=== PATIENT | female | born 1975 | race Asian ===

== ENCOUNTER 2017-07-14 19:46 | Emergency (ER) | payer BC ==
--- NOTE | 2017-07-14 20:10 | PDOC ---
History of Present Illness - General Chief Complaint: Syncope/Near Syncope Stated Complaint: SYNCOPE Time Seen by Provider: 07/14/17 19:52 - History of Present Illness Initial Comments: 07/14/17 20:10 CHIEF COMPLAINT: syncope HISTORY OF PRESENT ILLNESS: 42 yo F with hx of multiple syncopal episodes BIBEMS s/p syncope. Patient and family reports that she was "just sitting" when she felt leg cramps and then "passed out." She denies any recent fever, chills, nausea, vomiting, or diarrhea. 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 Olivera. Case Management Coordinator is Dr. Vizcarra. PAST MEDICAL HISTORY: Denies past medical history FAMILY HISTORY: Denies SOCIAL HISTORY: Denies tobacco, alcohol, illicit drug use. SURGICAL HISTORY: Denies ALLERGIES: No known drug allergies REVIEW OF SYSTEMS General/Constitutional: Denies fever or chills. Denies weakness, weight change. HEENT: Denies change in vision. Denies ear pain or discharge. Denies sore throat. Cardiovascular: Denies chest pain or shortness of breath. Respiratory: Denies cough, wheezing, or hemoptysis. Gastrointestinal: Denies nausea, vomiting, diarrhea or constipation. Denies rectal bleeding. Genitourinary: Denies dysuria, frequency, or change in urination. Musculoskeletal: Denies joint or muscle swelling or pain. Denies neck or back pain. Skin and breasts: Denies rash or easy bruising. Neurologic: LOC earlier. Denies any headache, vertigo or loss of sensation at this time. PHYSICAL EXAM General Appearance: Well-appearing, appropriately dressed. No apparent distress , no intoxication. HEENT: EOMI, PERRLA, normal ENT inspection, normal voice, TMs normal, pharynx normal. No conjunctival pallor. No photophobia, scleral icterus. Neck: Supple. Trachea midline. No tenderness, rigidity, carotid bruit, stridor , lymphadenopathy, or thyromegaly. Respiratory/Chest: Lungs CTAB. No shortness of breath, chest tenderness, respiratory distress, accessory muscle use. No crackles, rales, rhonchi, stridor , wheezing, dullness Cardiovascular: RRR. S1, S2. No JVD, murmur, bradycardia, tachycardia. Vascular Pulses: Dorsalis-Pedis (R): 2+, Dorsalis-Pedis (L): 2+ Gastrointestinal/Abdominal: Normal bowel sounds. Abdomen soft, non-distended. No tenderness or rebound tenderness. No organomegaly, pulsatile mass, guarding , hernia, hepatomegaly, splenomegaly. Lymphatic: No adenopathy, tenderness. Musculoskeletal/Extremities: Normal inspection. FROM of all extremities, normal capillary refill. Pelvis Stable. No CVA tenderness. No tenderness to extremities, pedal edema, swelling, erythema or deformity. Integumentary: Appropriate color, dry, warm. 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 Fully oriented, alert. Appropriate mood/affect. Motor strength 5/5. No appreciable EOM palsy, facial droop or sensory deficit. A&Ox3, follow commands, respond appropriately CN2-12: conjugate gaze, pupil round, equal and reactive to light. Visual field full to confrontation. EOMI without nystagmus, pursuit is smooth without saccade. Facial sensation and muscle activation intact bilaterally. Hearing intact bilaterally. Palate elevate symmetrically. Shoulder shrug and neck turn full strength. Tongue protrude midline. Motor: UE and LE strength 5/5 throughout bilaterally. Muscle tone and bulk normal. L shoulder abd 5/5 elbow F/E 5/5 wrist F/E 5/5 finger F/E 5/5 R shoulder abd 5/5 elbow F/E 5/5 wrist F/E 5/5 finger F/E 5/5 L hip F/E 5/5 knee F/E 5/5 ankle F/E 5/5 R hip F/E 5/5 knee F/E 5/5 ankle F/E 5/5 Sensory: pin prick & temp : BUE & BLE intact and equal bilaterally Vibration & propioception: intact bilaterally at 1st MCP and MTP joints. no sensory level noted on trunk Reflex: biceps brachioradialis triceps patellar achilles L 2+ 2+ 2+ 2+ 2+ R 2+ 2+ 2+ 2+ 2+ Plantar reflex downwards bilaterally. Cerebellar: Rapid-alternating movement with regular rhythm without bradykinesia. Xcqaab-bn-hqbn and wbkd-tz-jhvh intact bilaterally without dysmetria or overshoot. Gait narrow based. No shuffling. Full hip flexion and knee flexion. Negative Romberg No involuntary movement noted. No pronator drift. No clonus. Past History - Past Medical History Allergies/Adverse Reactions: Allergies Allergy/AdvReac Type Severity Reaction Status Date / Time No Known Drug Allergies Allergy Verified 07/14/17 19:55 Home Medications: Ambulatory Orders Calcium 500 mg PO ASDIR 05/13/15 Cholecalciferol (Vitamin D3) [Vitamin D3] 1,000 unit PO DAILY 05/13/15 Folic Acid/Mv,Fe,Min [Centrum Multivitamin Tab Chew] 1 cap PO DAILY 05/13/15 Cardiac Disorders: (ASD 2006) - Surgical History Cardiac Surgery: Yes (asd patchwork) - Suicide/Smoking/Psychosocial Hx Smoking History: Never smoked Have you smoked in the past 12 months: No Information on smoking cessation initiated: No Hx Alcohol Use: No Drug/Substance Use Hx: No Substance Use Type: None Hx Substance Use Treatment: No *Physical Exam - Vital Signs Last Vital Signs Temp Pulse Resp BP Pulse Ox 97.6 F 70 18 110/54 97 07/14/17 19:55 07/14/17 19:55 07/14/17 19:55 07/14/17 19:55 07/14/17 19:55 ED Treatment Course - LABORATORY CBC & Chemistry Diagram: 07/14/17 21:00 07/14/17 21:00 - ADDITIONAL ORDERS Additional order review: Laboratory Results 07/14/17 07/14/17 07/14/17 21:00 21:00 21:00 WBC RBC Hgb Hct MCV MCH MCHC RDW Plt Count MPV Neutrophils % Lymphocytes % Monocytes % Eosinophils % Basophils % PT with INR INR Sodium 138 Potassium 4.5 Chloride 106 Carbon Dioxide 27 Anion Gap 5 L BUN 11 Creatinine 0.8 Creat Clearance w eGFR > 60 Random Glucose 103 Calcium 8.6 Total Bilirubin 0.8 AST 20 ALT 28 Alkaline Phosphatase 54 Creatine Kinase 177 Creatine Kinase Index 0.5 CK-MB (CK-2) < 1.000 Troponin I < 0.02 Total Protein 7.8 Albumin 3.9 Urine Color Yellow Urine Appearance Clear Urine pH 5.0 Ur Specific Hope 1.023 Urine Protein 1+ H Urine Glucose (UA) Negative Urine Ketones Negative Urine Blood Negative Urine Nitrite Negative Urine Bilirubin Negative Urine Urobilinogen Negative Ur Leukocyte Esterase Trace Urine WBC (Auto) 2 Urine RBC (Auto) None Ur Epithelial Cells Rare Urine Bacteria Rare Urine Mucus Rare Anti-A Titer Cancelled Blood Type Cancelled Antibody Screen Cancelled 07/14/17 07/14/17 21:00 21:00 WBC 7.8 D RBC 4.35 Hgb 12.7 Hct 38.1 MCV 87.5 MCH 29.1 MCHC 33.3 RDW 13.4 D Plt Count 239 MPV 8.0 Neutrophils % 74.9 D Lymphocytes % 18.6 D Monocytes % 4.8 Eosinophils % 1.3 Basophils % 0.4 PT with INR 11.90 H INR 1.05 Sodium Potassium Chloride Carbon Dioxide Anion Gap BUN Creatinine Creat Clearance w eGFR Random Glucose Calcium Total Bilirubin AST ALT Alkaline Phosphatase Creatine Kinase Creatine Kinase Index CK-MB (CK-2) Troponin I Total Protein Albumin Urine Color Urine Appearance Urine pH Ur Specific Hope Urine Protein Urine Glucose (UA) Urine Ketones Urine Blood Urine Nitrite Urine Bilirubin Urine Urobilinogen Ur Leukocyte Esterase Urine WBC (Auto) Urine RBC (Auto) Ur Epithelial Cells Urine Bacteria Urine Mucus Anti-A Titer Blood Type Antibody Screen 07/14/17 21:00 RBC 4.35 MCV 87.5 MCHC 33.3 RDW 13.4 D MPV 8.0 Neutrophils % 74.9 D Lymphocytes % 18.6 D Monocytes % 4.8 Eosinophils % 1.3 Basophils % 0.4 - RADIOLOGY Radiology Studies Ordered: Category Date Time Status HEAD CT WITHOUT CONTRAST [CT] Stat CT Scan 07/14/17 20:11 Taken - Medications Given in the ED: ED Medications Discontinued Medications Generic Name Dose Route Start Last Admin Trade Name Freq PRN Reason Stop Dose Admin Sodium Chloride 1,000 mls @ 42 mls/hr 07/14/17 20:15 07/14/17 21:25 Normal Saline - IV 42 mls/hr ASDIR [facility] Administration Medical Decision Making - Medical Decision Making 07/14/17 23:21 42 yo F with hx of multiple syncopal episodes BIBEMS s/p syncope. -EKG -Head CT -CBC, CMP, PT/INR, card profile -UA, UCx 07/14/17 23:23 Labs unremarkable. EKG normal. Head CT results: FINDINGS: There are no calvarial, facial or skull base fractures. There are no intracranial hemorrhages or brain parenchymal contusion injuries. There are no extra-axial fluid collections or evidence of an intra-axial mass lesion. There is no evidence of an acute ischemic lesion at this time. The sulci and ventricles are normal in size. Orbital and petrous structures, cerebellopontine angles, and posterior fossa appear unremarkable. The paranasal and mastoid sinuses are clear. IMPRESSION: Normal CT scan of the head. No calvarial, facial or skull base fractures. No intracranial hemorrhages or brain parenchymal contusion injuries. No evidence of an acute ischemic lesion at this time. Read by: Madi Metzger MD. Advised patient to take medication as prescribed and follow up with PCP, neuro, and cards. Advised patient of signs and symptoms for return to ED. Patient verbalized understanding and agrees to plan. *DC/Admit/Observation/Transfer Diagnosis at time of Disposition: Syncopal episodes Qualifiers: Syncope type: unspecified Qualified Code(s): R55 - Syncope and collapse - Discharge Dispostion Disposition: HOME Condition at time of disposition: Stable Admit: No - Referrals Referrals: Tamiko Vines MD [Staff Physician] - Teddy Vizcarra MD [Staff Physician] - Gilberto Camacho MD [Staff Physician] - Young Chester MD [Staff Physician] - - Patient Instructions Printed Discharge Instructions: DI for Syncope in Adults (Fainting) Additional Instructions: You MUST follow up with neurology next week for further evaluation of your syncopal episodes. Please also follow up with Drs. Olivera and Mohinder within the next 1-2 weeks. If you develop ANY new or worsening symptoms, please return to the ER. - Post Discharge Activity
[2017-07-14] MEDS ORDERED: SODIUM CHLORIDE 1,000 ML IV SCH (20:15)
[2017-07-14 21:09] LABS: BASO % 0.4 % (0-2.0); EOS % 1.3 % (0-4.5); HEMATOCRIT 38.1 % (32.4-45.2); HEMOGLOBIN 12.7 GM/dL (10.7-15.3); LYMPH % 18.6 % (8-40); MCH 29.1 pg (25.7-33.7); MCHC 33.3 g/dl (32.0-36.0); MEAN CELL VOLUME 87.5 fl (80-96); MONO % 4.8 % (3.8-10.2); NEUT % 74.9 % (42.8-82.8); PLATELET COUNT 239 K/MM3 (134-434); RBC 4.35 M/mm3 (3.60-5.2); RDW 13.4 % (11.6-15.6); WHITE BLOOD COUNT 7.8 K/mm3 (4.0-10.0)
[2017-07-14 21:10] VITALS: BP 110/54; PULSE 70; TEMP 97.6; BMI 26.9
[2017-07-14 21:11] LABS: URINE APPEARANCE CLEAR; URINE BILIRUBIN NEGATIVE (NEGATIVE); URINE BLOOD NEGATIVE (NEGATIVE); URINE COLOR YELLOW; URINE GLUCOSE (UA) NEGATIVE (NEGATIVE); URINE KETONE NEGATIVE (NEGATIVE); URINE LEUK ESTERASE TRACE (NEGATIVE); URINE NITRITE NEGATIVE (NEGATIVE); URINE UROBILINOGEN NEGATIVE mg/dL (0.2-1.0)
[2017-07-14 21:12] LABS: URINE PROTEIN 1+ (NEGATIVE)
[2017-07-14 21:13] LABS: EPI CELLS RARE /HPF (FEW); URINE BACTERIA RARE /hpf (NONE SEEN); URINE MUCUS RARE
[2017-07-14 21:22] LABS: INR 1.05 (0.82-1.09); PROTHROMBIN TIME (PATIENT) 11.9 SEC (9.98-11.88)
[2017-07-14 21:32] LABS: ALBUMIN 3.9 g/dl (3.4-5.0); ANION GAP 5 (8-16); BILIRUBIN,TOTAL 0.8 mg/dL (0.2-1.0); BLOOD UREA NITROGEN 11 mg/dL (7-18); CALCIUM 8.6 mg/dL (8.5-10.1); CHLORIDE 106 mmol/L (98-107); CO2 27 mmol/L (21-32); CREATININE 0.8 mg/dL (0.55-1.02); GLUCOSE,RANDOM 103 mg/dL (74-106); SGPT/ALT 28 U/L (12-78); SODIUM 138 mmol/L (136-145); TOT PROT 7.8 g/dl (6.4-8.2)
[2017-07-14 21:34] LABS: ALK PHOS 54 U/L (45-117)
[2017-07-14 21:40] LABS: POTASSIUM 4.5 mmol/L (3.5-5.1); SGOT/AST 20 U/L (15-37)
--- NOTE | 2017-07-15 08:42 | EKG ---
Test Reason : Blood Pressure : / mmHG Vent. Rate : 062 BPM Atrial Rate : 062 BPM P-R Int : 170 ms QRS Dur : 082 ms QT Int : 414 ms P-R-T Axes : 021 014 056 degrees QTc Int : 420 ms NORMAL SINUS RHYTHM NONSPECIFIC T WAVE ABNORMALITY ABNORMAL ECG WHEN COMPARED WITH ECG OF 19-SEP-2014 15:36, NO SIGNIFICANT CHANGE WAS FOUND Confirmed by SAMEER PERALTA MD ([id number]) on 07/15/2017 8:42:00 AM Referred By: Confirmed By:SAMEER PERALTA MD
== END 2017-07-14 23:12 | disposition home or self-care (01) ==
LOC: JER 19:46
PROC: 3E0337Z Introduction of Electrolytic and Water Balance Substance into Peripheral Vein, Percutaneous Approach (ICD-10-PCS; principal; 2017-07-14)
DX: R55 Syncope and collapse (principal); Z86.79 Personal history of other diseases of the circulatory system
CPT/HCPCS: 36415; 70450-TC; 80053; 81003; 81015; 82550; 82553; 84484; 85025; 85610; 93005; 93010; 99282-25

== ENCOUNTER 2018-02-11 22:43 | Emergency (ER) | payer BC ==
[2018-02-11 22:50] VITALS: TEMP 98.4; BMI 27.2
[2018-02-11] MEDS ORDERED: SODIUM CHLORIDE 1,000 ML IV STA (23:01)
[2018-02-11] MEDS ORDERED: MAG HYDROX/AL HYDROX/SIMETH -MYLANTA- ORAL SUSPENSION PO ONE (23:02)
[2018-02-11] MEDS ORDERED: ONDANSETRON 4 MG/2 ML VIAL IVPUSH ONE (23:02)
[2018-02-11] MEDS ORDERED: FAMOTIDINE 20 MG/50 ML IVPB 20 MG/50 ML MG IVPB ONE ×2 (23:02→23:12)
[2018-02-11] MEDS ORDERED: morphine CARPU-JECT 4 MG/1 ML DISP.SYRIN IVPUSH ONE (23:08)
[2018-02-11] MEDS ORDERED: MAG HYDROX/AL HYDROX/SIMETH 30 ML UNIT-DOSE CUP ONE (23:12)
[2018-02-11] MEDS ORDERED: ONDANSETRON 4 MG/2 ML VIAL ONE (23:12)
[2018-02-11] MEDS ORDERED: morphine SULFATE 4 MG/ML VIAL ONE (23:12)
--- NOTE | 2018-02-11 23:14 | PDOC ---
Attending Attestation - Resident Resident Name: Shantanu Paul - ED Attending Attestation I have performed the following: I have examined & evaluated the patient, The case was reviewed & discussed with the resident, I agree w/resident's findings & plan, Exceptions are as noted - HPI HPI: 02/11/18 23:11 Ms Aldrich is a 43 yo F who presents to the ER with a complaint of abdominal/ chest pain Symptoms began today No fevers or chills (+) nausea, no vomiting, no diarrhea No prior episodes like this Pain is sharp, worsens with laying flat No recent travel, no leg edema No shortness of breath - Physicial Exam PE: 02/11/18 23:12 GENERAL: The patient is in no acute distress, pt appears uncomfortable, unwilling to lay flat for examination LUNGS: Breath sounds equal, clear to auscultation bilaterally. No wheezes, and no crackles. HEART:Regular rate and rhythm, normal S1 and S2 without murmur, rub or gallop. ABDOMEN: Soft, epigastric/ruq tenderness to palpation, in involuntary guarding or rebound EXTREMITIES: Normal range of motion NEUROLOGICAL: Cranial nerves II through XII grossly intact. Normal speech. No focal neurological deficits. MUSCULOSKELETAL: Back non-tender to palpation, no CVA tenderness SKIN: Warm, Dry, normal turgor, no rashes or lesions noted. - Medical Decision Making 02/11/18 23:12 DD: enteritis, gastroenteritis, cholecystitis, gastritis, gastric ulcer Will do: Labs US IVF Pain medications Anti emetics/PPI Re assess Of note Pt had US two weeks ago which demonstrated GB wall thickening, adenomyosis Will repeat today EKG: NSR rate of 65 bpm, axis nml, intervals nml, no st elevations or depressions, t wave inversion v2, v3 , v4 02/12/18 00:40 Laboratory Tests 02/11/18 02/11/18 02/11/18 23:15 23:15 23:15 WBC 6.6 Hgb 11.8 Hct 35.8 Plt Count 204 INR 0.85 BUN 10 Creatinine 0.7 Creatine Kinase 166 Troponin I < 0.02 Lipase Serum , Qual 02/11/18 02/11/18 23:15 23:15 WBC Hgb Hct Plt Count INR BUN Creatinine Creatine Kinase Troponin I Lipase 119 Serum , Qual Negative Upon re assessment, pt states pain is bearable No nausea Labs demonstrate no ACS, CXR demonstrates no effusion, pneumothorax Lipase negative - no pancreatitis US demonstrates adenomyosis Follow up with PMD Follow up with GI Return to the ER for any other concerns or complaints
[2018-02-11 23:24] LABS: BASO % 0.5 % (0-2.0); EOS % 1.4 % (0-4.5); HEMATOCRIT 35.8 % (32.4-45.2); HEMOGLOBIN 11.8 GM/dL (10.7-15.3); MCH 27.6 pg (25.7-33.7); MEAN CELL VOLUME 83.8 fl (80-96); MEAN PLT VOLUME 7.9 fl (7.5-11.1); MONO % 6.7 % (3.8-10.2); NEUT % 53.4 % (42.8-82.8); PLATELET COUNT 204 K/MM3 (134-434); RBC 4.27 M/mm3 (3.60-5.2); RDW 14.1 % (11.6-15.6); WHITE BLOOD COUNT 6.6 K/mm3 (4.0-10.0)
--- NOTE | 2018-02-11 23:25 | PDOC ---
History of Present Illness - General Chief Complaint: Chest Pain Stated Complaint: CHEST PAIN Time Seen by Provider: 02/11/18 22:55 History Source: Patient Exam Limitations: No Limitations - History of Present Illness Initial Comments: 02/11/18 23:20 Patient is a 43F with no significant medical history complaining of substernal chest pain that started several hours prior to presentation. Patient describes the pain as a stabbing under her sternum/epigastrium. Reports associated nausea and vomiting. Pain is worse with laying down. Denies shortness of breath. Denies leg swelling, history of clots, recent travel. Patient had gallbladder ultrasound down several weeks ago that she does not know the result of. Endorses subjective fevers/chills. Denies abdominal surgical history. Denies dysuria. Last bowel movement today. Past History - Past Medical History Allergies/Adverse Reactions: Allergies Allergy/AdvReac Type Severity Reaction Status Date / Time No Known Drug Allergies Allergy Verified 02/12/18 00:17 Home Medications: Ambulatory Orders NK [No Known Home Medication] 02/12/18 Cardiac Disorders: (ASD 2006) COPD: No - Surgical History Cardiac Surgery: Yes (asd patchwork) - Suicide/Smoking/Psychosocial Hx Smoking History: Never smoked Have you smoked in the past 12 months: No Information on smoking cessation initiated: No Hx Alcohol Use: No Drug/Substance Use Hx: No Substance Use Type: None Hx Substance Use Treatment: No Review of Systems - Review of Systems Comments:: 02/11/18 23:23 GENERAL/CONSTITUTIONAL: No fever or chills. No weakness. HEAD, EYES, EARS, NOSE AND THROAT: No change in vision. No sore throat. CARDIOVASCULAR: +chest pain. No shortness of breath RESPIRATORY: No cough, wheezing, or hemoptysis. GASTROINTESTINAL: +nausea, vomiting. No diarrhea or constipation. GENITOURINARY: No dysuria, frequency, or change in urination. MUSCULOSKELETAL: No joint or muscle swelling or pain. No neck or back pain. SKIN: No rash NEUROLOGIC: No headache, vertigo, loss of consciousness, or change in strength/ sensation. ENDOCRINE: No increased thirst. No abnormal weight change HEMATOLOGIC/LYMPHATIC: No anemia, easy bleeding, or history of blood clots. ALLERGIC/IMMUNOLOGIC: No hives or skin allergy. *Physical Exam - Vital Signs Last Vital Signs Temp Pulse Resp BP Pulse Ox 98.4 F 65 18 124/67 100 02/11/18 22:46 02/11/18 22:46 02/11/18 22:46 02/11/18 22:46 02/11/18 22:46 - Physical Exam Comments: 02/11/18 23:24 GENERAL: Awake, alert, and fully oriented, sitting up, hunched over in pain HEAD: No signs of trauma, normocephalic, atraumatic EYES: PERRLA, EOMI, sclera anicteric, conjunctiva clear ENT: Auricles normal inspection, hearing grossly normal, nares patent, oropharynx clear without exudates. Moist mucosa NECK: Normal ROM, supple, no lymphadenopathy, JVD, or masses LUNGS: No distress, speaks full sentences, clear to auscultation bilaterally HEART: Regular rate and rhythm, normal S1 and S2, no murmurs, rubs or gallops, peripheral pulses normal and equal bilaterally. ABDOMEN: Soft, +RUQ pain, +epigastric pain, normoactive bowel sounds. No guarding, no rebound. No masses EXTREMITIES: Normal inspection, Normal range of motion, no edema. No clubbing or cyanosis. NEUROLOGICAL: Cranial nerves II through XII grossly intact. Normal speech, no focal sensorimotor deficits SKIN: Warm, Dry, normal turgor, no rashes or lesions noted. Heart Score/ECG Review - History History: Slightly suspicious - Electrocardiogram EKG: Non specific repolarization disturbance - Age Age: </= 45 - Risk Factors Based on the list above the patient has:: No risk factors known - Troponin Troponin: </= normal limit - Score Heart Score - Total: 1 ED Treatment Course - LABORATORY CBC & Chemistry Diagram: 02/11/18 23:15 02/11/18 23:15 - RADIOLOGY Radiology Studies Ordered: Category Date Time Status CHEST X-RAY PORTABLE* [RAD] Stat Radiology 02/11/18 23:01 Ordered ABDOMEN US -LIMITED [US] Stat Ultrasound 02/11/18 23:08 Ordered Medical Decision Making - Medical Decision Making 02/11/18 23:25 Patient is 43F here today with epigastric and abdominal pain. Vital signs normal and stable. DDx includes, but is not limited to: gastritis, cholecystitis , ACS, arrhythmia. Will evaluate with abdominal and cardiac labs. Treat with pepcid, morphine, fluids, zofran. Will do EKG and abdominal US. Prior US shows gallstones and gallbladder wall thickening done on 01/22. EKG shows normal sinus rhythm with rate of 65. No st elevations/depressions. T wave inversions in V2-V4, stable compared to EKG done on 07/14/17. Normal axis. Normal intervals. 02/12/18 00:29 CBC, CMP normal. Lipase normal. Preg negative. US shows adenomatosis of gallbladder wall, no stones. Patient reports feeling better. Believe patient has gastritis. Will discharge with return precautions and instructions to follow up with GI. *DC/Admit/Observation/Transfer Diagnosis at time of Disposition: Gastritis - Discharge Dispostion Disposition: HOME Condition at time of disposition: Good Decision to Admit order: No - Referrals Referrals: Tamiko Vines MD [Primary Care Provider] - Carline Dougherty MD [Staff Physician] - - Patient Instructions Printed Discharge Instructions: DI for Gastritis Additional Instructions: Please return to the ED if you have any new, worsening or concerning symptoms. Please follow up with a GI doctor this week. - Post Discharge Activity
[2018-02-11 23:36] LABS: INR 0.85 (0.83-1.09); PROTHROMBIN TIME (PATIENT) 9.6 SEC (9.7-13.0)
[2018-02-11 23:49] LABS: ALBUMIN 3.5 g/dl (3.4-5.0); ANION GAP 8 MMOL/L (8-16); BILIRUBIN,TOTAL 0.6 mg/dL (0.2-1.0); BLOOD UREA NITROGEN 10 mg/dL (7-18); CALCIUM 8.5 mg/dL (8.5-10.1); CHLORIDE 103 mmol/L (98-107); CO2 27 mmol/L (21-32); CREATININE 0.7 mg/dL (0.55-1.02); GLUCOSE,RANDOM 123 mg/dL (74-106); MAGNESIUM 2.1 mg/dL (1.8-2.4); POTASSIUM 3.6 mmol/L (3.5-5.1); SGOT/AST 19 U/L (15-37); SGPT/ALT 29 U/L (12-78); SODIUM 138 mmol/L (136-145); TOT PROT 7.2 g/dl (6.4-8.2)
[2018-02-11 23:52] LABS: ALK PHOS 54 U/L (45-117)
[2018-02-12 00:48] VITALS: BP 123/84; PULSE 83
--- NOTE | 2018-02-12 17:15 | EKG ---
Test Reason : Blood Pressure : / mmHG Vent. Rate : 065 BPM Atrial Rate : 065 BPM P-R Int : 142 ms QRS Dur : 086 ms QT Int : 400 ms P-R-T Axes : 020 020 046 degrees QTc Int : 416 ms NORMAL SINUS RHYTHM NONSPECIFIC T WAVE ABNORMALITY ABNORMAL ECG Confirmed by MD VIPIN, MARY ([id number]) on 02/12/2018 5:14:53 PM Referred By: Confirmed By:MARY LEW MD
== END 2018-02-12 00:48 | disposition home or self-care (01) ==
LOC: JER 22:43
PROC: 3E033GC Introduction of Other Therapeutic Substance into Peripheral Vein, Percutaneous Approach (ICD-10-PCS; principal; 2018-02-11)
PROC: 3E033GC Introduction of Other Therapeutic Substance into Peripheral Vein, Percutaneous Approach (ICD-10-PCS; 2018-02-11)
PROC: 3E033NZ Introduction of Analgesics, Hypnotics, Sedatives into Peripheral Vein, Percutaneous Approach (ICD-10-PCS; 2018-02-11)
DX: K29.70 Gastritis, unspecified, without bleeding (principal)
CPT/HCPCS: 36415; 71045-TC-FY; 76705-TC; 80053; 82550; 82553; 83690; 83735; 84484; 84703; 85025; 85610; 93005; 93010; 99283-25; J7030

== ENCOUNTER 2020-07-28 17:38 | Observation (INO) | payer BC ==
[2020-07-28 20:41] LABS: BASO % 0.3 % (0-2.0); EOS % 1.1 % (0-4.5); HEMOGLOBIN 11.5 GM/dL (10.7-15.3); LYMPH % 29.5 % (8-40); MCH 27.3 pg (25.7-33.7); MCHC 32.9 g/dl (32.0-36.0); MEAN PLT VOLUME 8.6 fl (7.5-11.1); MONO % 6.2 % (3.8-10.2); NEUT % 62.9 % (42.8-82.8); PLATELET COUNT 218 K/MM3 (134-434); RBC 4.21 M/mm3 (3.60-5.2); RDW 15.4 % (11.6-15.6); WHITE BLOOD COUNT 5.7 K/mm3 (4.0-10.0)
[2020-07-28 21:05] LABS: CHLORIDE 107 mmol/L (98-107); SODIUM 141 mmol/L (136-145)
[2020-07-28 21:07] LABS: ALBUMIN 3.6 g/dl (3.4-5.0); ANION GAP 9 MMOL/L (8-16); BLOOD UREA NITROGEN 9.6 mg/dL (7-18); CO2 25 mmol/L (21-32)
[2020-07-28 21:08] LABS: GLUCOSE,RANDOM 106 mg/dL (74-106)
[2020-07-28 21:10] LABS: SGPT/ALT 26 U/L (13-61)
[2020-07-28 21:11] LABS: CREATININE 0.7 mg/dL (0.55-1.3); SGOT/AST 14 U/L (15-37)
[2020-07-28 21:12] LABS: BILIRUBIN,TOTAL 0.6 mg/dL (0.2-1); TOT PROT 7.4 g/dl (6.4-8.2)
[2020-07-28 21:13] LABS: ALK PHOS 61 U/L (45-117)
[2020-07-29] MEDS ORDERED: ACETAMINOPHEN 325 MG TABLET (FP) PO PRN (02:02)
[2020-07-29 07:18] LABS: HEMATOCRIT 34.3 % (32.4-45.2); HEMOGLOBIN 11.2 GM/dL (10.7-15.3); MCH 27.2 pg (25.7-33.7); MCHC 32.7 g/dl (32.0-36.0); MEAN CELL VOLUME 83.3 fl (80-96); MEAN PLT VOLUME 8.6 fl (7.5-11.1); PLATELET COUNT 208 K/MM3 (134-434); RBC 4.12 M/mm3 (3.60-5.2); RDW 15.3 % (11.6-15.6); WHITE BLOOD COUNT 5.2 K/mm3 (4.0-10.0)
[2020-07-29 07:40] LABS: CHLORIDE 108 mmol/L (98-107); SODIUM 139 mmol/L (136-145)
[2020-07-29 07:49] LABS: CHOLESTEROL 226 mg/dL (50-200)
[2020-07-29 07:50] LABS: LDL CHOLESTEROL (ONLY SJRH) 144 mg/dL (5-100); TRIGLYCERIDES 192 mg/dL (0-150)
[2020-07-29 07:52] LABS: HDL CHOLESTEROL 58 mg/dL (40-60)
[2020-07-29 07:55] LABS: CALCIUM 8.6 mg/dL (8.5-10.1)
[2020-07-29 07:56] LABS: ANION GAP 6 MMOL/L (8-16); BLOOD UREA NITROGEN 8.1 mg/dL (7-18); CO2 26 mmol/L (21-32); GLUCOSE,RANDOM 97 mg/dL (74-106)
[2020-07-29 07:59] LABS: CREATININE 0.6 mg/dL (0.55-1.3)
[2020-07-29] MEDS: SODIUM CHLORIDE 1,000 ML IV SCH ×2 (12:59→21:18)
[2020-07-29] MEDS ORDERED: ASPIRIN 81 MG CHEWABLE TABLETS PO ONE (15:27)
[2020-07-29] MEDS ORDERED: ASPIRIN 81 MG CHEWABLE TABLETS ONE (15:33)
[2020-07-29] MEDS: ALBUTEROL SO4 2.5/IPRATROPIUM 0.5 INH SOL 3 ML VIAL.NEB. NEB SCH (21:14)
[2020-07-29] MEDS ORDERED: ATORVASTATIN CA 10 MG TABLET (FP) PO SCH (22:00)
[2020-07-30 04:40] VITALS: BMI 22.4
[2020-07-30 06:29] VITALS: TEMP 98.2
[2020-07-30] MEDS: ALBUTEROL SO4 2.5/IPRATROPIUM 0.5 INH SOL 3 ML VIAL.NEB. NEB SCH ×2 (08:29→11:33)
[2020-07-30] MEDS ORDERED: ONDANSETRON 4 MG/2 ML VIAL IVPUSH PRN (09:54)
[2020-07-30] MEDS ORDERED: ASPIRIN 81 MG CHEWABLE TABLETS PO SCH (10:00)
[2020-07-30] MEDS ORDERED: SIMETHICONE 80 MG TAB.CHEW (FP) PO SCH (13:00)
[2020-07-30] MEDS: SODIUM CHLORIDE 1,000 ML IV SCH (13:32)
[2020-07-30 13:34] VITALS: BP 135/69; PULSE 92
== END 2020-07-30 16:00 | disposition home or self-care (01) ==
LOC: JER 17:38 → JERBED 23:07 → J4S 07-29 21:09
PROVIDERS: ADMIT Hospitalist; ATTEND Internal Medicine
PROC: 3E0F7GC Introduction of Other Therapeutic Substance into Respiratory Tract, Via Natural or Artificial Opening (ICD-10-PCS; principal; 2020-07-28)
DX: R55 Syncope and collapse (principal); M25.511 Pain in right shoulder; Q21.1 Atrial septal defect; Z87.74 Personal history of (corrected) congenital malformations of heart and circulatory system; R07.89 Other chest pain; E78.5 Hyperlipidemia, unspecified; R06.02 Shortness of breath; R06.00 Dyspnea, unspecified; G47.33 Obstructive sleep apnea (adult) (pediatric)
CPT/HCPCS: 36415; 70450-TC; 71045-TC-FY; 71260-TC; 73030-TC-RT-FY; 80048; 80053; 80061; 82550; 82553; 83721; 83880; 84439; 84443; 84484; 85025; 85027; 85379; 86800; 93005; 93010; 93017; 93018; 93306-TC; 93880-TC; 94640; 99285-25; C9803; G0378; Q9967; U0003

== ENCOUNTER 2022-11-06 05:40 | Day surgery (SDC) | payer BC ==
[2022-11-02 17:56] VITALS: BMI 27.6
[2022-11-06] MEDS ORDERED: PROPOFOL 20 ML ONE (09:37)
[2022-11-06] MEDS ORDERED: LIDOCAINE HCL/PF 2% SDV 5ML VIAL ONE (09:37)
[2022-11-06] MEDS ORDERED: KETOROLAC TROMETHAMINE 30 MG/1 ML VIAL ONE ×2 (09:37→11:58)
[2022-11-06] MEDS ORDERED: ONDANSETRON 4 MG/2 ML VIAL ONE ×2 (09:37→13:41)
[2022-11-06] MEDS ORDERED: DEXAMETHASONE SOD PHOSPHATE 4 MG/1 ML VIAL ONE (09:37)
[2022-11-06] MEDS ORDERED: MIDAZOLAM HCL 2 MG/2 ML SINGLE DOSE VIAL ONE (09:37)
[2022-11-06] MEDS ORDERED: SEVOFLURANE 250 ML BTL ONE (09:38)
[2022-11-06] MEDS ORDERED: ROCURONIUM BROMIDE 50 MG/5 ML SYRINGE ONE (09:41)
[2022-11-06] MEDS ORDERED: ONDANSETRON 4 MG/2 ML VIAL IVPUSH PRN (10:12)
[2022-11-06] MEDS ORDERED: oxyCODONE HCL 5 MG TABLET PO PRN (10:12)
[2022-11-06] MEDS ORDERED: PROMETHAZINE HCL 25 MG/1 ML VIAL IVPB PRN (10:12)
[2022-11-06] MEDS ORDERED: ACETAMINOPHEN 1000 MG/100 ML BAG IVPB PRN (10:13)
[2022-11-06] MEDS ORDERED: LACTATED RINGERS SOLUTION 1,000 ML IV SCH (10:15)
[2022-11-06] MEDS ORDERED: ceFAZolin SODIUM 1 GM VIAL IVPB ONE (11:07)
[2022-11-06] MEDS ORDERED: ceFAZolin SODIUM 1 GM VIAL ONE (11:07)
[2022-11-06] MEDS ORDERED: NEOSTIGMINE METHYLSULFATE 0.5 MG/1 ML - 10 ML MDV ONE (11:58)
[2022-11-06] MEDS ORDERED: GLYCOPYRROLATE 0.2 MG/1 ML VIAL ONE (11:58)
[2022-11-06] MEDS ORDERED: ACETAMINOPHEN INJECTION 100 ML IVPB ONE (12:44)
[2022-11-06 14:58] VITALS: RESP 18
[2022-11-06 15:41] VITALS: BP 135/78; PULSE 96; TEMP 98
== END 2022-11-06 16:35 | disposition home or self-care (01) ==
LOC: JASUSAT 05:40
PROVIDERS: ATTEND Obstetrics & Gynecology
PROC: 0UDB8ZX Extraction of Endometrium, Via Natural or Artificial Opening Endoscopic, Diagnostic (ICD-10-PCS; principal; 2022-11-06 10:00)
PROC: 0UH97HZ Insertion of Contraceptive Device into Uterus, Via Natural or Artificial Opening (ICD-10-PCS; 2022-11-06 10:00)
PROC: 0UT54ZZ Resection of Right Fallopian Tube, Percutaneous Endoscopic Approach (ICD-10-PCS; 2022-11-06 10:00)
PROC: 0UB04ZZ Excision of Right Ovary, Percutaneous Endoscopic Approach (ICD-10-PCS; 2022-11-06 10:00)
DX: N92.0 Excessive and frequent menstruation with regular cycle (principal); N94.6 Dysmenorrhea, unspecified; N83.11 Corpus luteum cyst of right ovary
CPT/HCPCS: 81025; 88302-TC; 88305-TC; 94760